=== PATIENT | male | born 1955 | race Caucasian/White ===

== ENCOUNTER → 2018-09-04 | Outpatient (CLI) | payer OTHER ==
[~2018-09-04] MED LIST: OMNIPAQUE 350 MG/ML, 100ML BOTTLE ONE
== END | disposition home or self-care (01) ==
LOC: RAD 11:47
PROVIDERS: ATTEND Nurse Practitioner Primary Care
DX: J39.2 Other diseases of pharynx (principal); M10.9 Gout, unspecified; G47.30 Sleep apnea, unspecified
CPT/HCPCS: 70491; Q9967

== ENCOUNTER → 2018-09-12 | Outpatient (CLI) | payer OTHER | END | disposition home or self-care (01) | LOC: CFH 14:38 | PROVIDERS: ATTEND Nurse Practitioner Primary Care | DX: I34.0 Nonrheumatic mitral (valve) insufficiency (principal); R22.9 Localized swelling, mass and lump, unspecified; G47.30 Sleep apnea, unspecified | CPT/HCPCS: 93306 ==

== ENCOUNTER → 2018-09-13 | Outpatient (CLI) | payer OTHER | END | disposition home or self-care (01) | LOC: PETCFH 12:50 | PROVIDERS: ATTEND Otolaryngology | DX: C79.89 Secondary malignant neoplasm of other specified sites (principal); C76.0 Malignant neoplasm of head, face and neck | CPT/HCPCS: 78815; A9552 ==

== ENCOUNTER 2018-09-14 13:03 | Outpatient (CLI) | payer OTHER | END 2018-09-14 23:59 | disposition home or self-care (01) | LOC: RAD 13:03 | PROVIDERS: ATTEND Otolaryngology | DX: C96.9 Malignant neoplasm of lymphoid, hematopoietic and related tissue, unspecified (principal) | CPT/HCPCS: 10005; 88173; 88304; 88342 ==

== ENCOUNTER 2018-10-11 10:02 | Day surgery (SDC) | payer OTHER ==
[~2018-10-11] VITALS: Ht 180.3 cm; Wt 89.0 kg
[~2018-10-11 10:02] MED LIST changes: +BUPIVACAINE/EPI 0.5% 1:200K ONE; -OMNIPAQUE 350 MG/ML, 100ML BOTTLE ONE
[2018-10-11 10:37] VITALS: BP 127/79
[2018-10-11] MEDS ORDERED: LACTATED RINGERS 1,000 ML IV SCH ×2 (10:42→12:34)
[2018-10-11] MEDS ORDERED: ACETAMINOPHEN 500 MG TABLET PO ONE (11:00)
[2018-10-11] MEDS ORDERED: GABAPENTIN 300 MG CAPSULE PO ONE (11:00)
[2018-10-11] MEDS ORDERED: APREPITANT 40 MG CAPSULE PO ONE (11:00)
[2018-10-11] MEDS ORDERED: MIDAZOLAM 1 MG/ML, 2ML ONE (11:02)
[2018-10-11] MEDS ORDERED: FENTANYL PF 250 MCG/5ML ONE (11:02)
[2018-10-11] MEDS ORDERED: DIAZEPAM 5 MG TABLET ONE (11:23)
[2018-10-11] MEDS ORDERED: DIAZEPAM 5 MG TABLET PO ONE (11:30)
[2018-10-11] MEDS ORDERED: KETAMINE 10 MG/ML, 20ML ONE (11:31)
[2018-10-11] MEDS ORDERED: SUGAMMADEX 200 MG/2 ML IVPush ONE ×2 (11:31→11:43)
[2018-10-11] MEDS ORDERED: SUCCINYLCHOLINE 20 MG/ML, 10ML ONE (11:43)
[2018-10-11] MEDS ORDERED: ROCURONIUM 10 MG/ML,10ML ONE (11:43)
[2018-10-11] MEDS ORDERED: ONDANSETRON 2MG/ML, 2ML ONE (11:43)
[2018-10-11] MEDS ORDERED: PROPOFOL 10 MG/ML, 20ML ONE (11:43)
[2018-10-11] MEDS ORDERED: CEFAZOLIN 1,000 MG ONE (11:43)
[2018-10-11] MEDS ORDERED: EPHEDRINE 50 MG/ML, 1ML ONE (11:43)
[2018-10-11] MEDS ORDERED: HEPARIN 1,000 UNITS/ML, 10ML ONE (11:45)
[2018-10-11] MEDS ORDERED: hydrALAzine 20 MG/ML, 1ML IV PRN (12:30)
[2018-10-11] MEDS ORDERED: DIAZEPAM 5 MG/ML, 2ML IVPush PRN (12:30)
[2018-10-11] MEDS ORDERED: HYDROmorphone 2 MG/ML, 1ML IVPush PRN (12:30)
[2018-10-11] MEDS ORDERED: OXYcodone 5 MG/5 ML ORAL.SOL UDC PO PRN (12:30)
[2018-10-11] MEDS ORDERED: PROMETHAZINE 25 MG/ML, 1ML IV PRN (12:30)
[2018-10-11] MEDS ORDERED: HALOPERIDOL 5 MG/ML IV PRN (12:30)
[2018-10-11] MEDS ORDERED: MEPERIDINE/PF 25MG/0.5ML IVPush PRN (12:30)
[2018-10-11] MEDS ORDERED: OXYcodone 5 MG/5 ML ORAL.SOL UDC ONE (12:53)
[2018-10-11] MEDS ORDERED: FENTANYL PF 100 MCG/2ML ONE (12:53)
[2018-10-11] MEDS: FENTANYL PF 100 MCG/2ML IV PRN ×4 (12:57→13:11)
[2018-10-11] MEDS ORDERED: ONDANSETRON 2MG/ML, 2ML IVPush PRN (13:00)
[2018-10-11] MEDS ORDERED: HYDROcodone/APAP 5/325 TABLET PO PRN (13:00)
== END 2018-10-11 17:25 | disposition home or self-care (01) ==
LOC: OUT 10:02
PROVIDERS: ATTEND Thoracic Surgery (Cardiothoracic Vascular Surgery)
DX: Z45.2 Encounter for adjustment and management of vascular access device (principal); C02.9 Malignant neoplasm of tongue, unspecified; Z98.890 Other specified postprocedural states; Z98.52 Vasectomy status; Z72.89 Other problems related to lifestyle
CPT/HCPCS: 36561; 43653; 77001; 93005; B4087; C1788; J0330; J0690; J1644; J2250; J2405; J2704; J3010; J8501

== ENCOUNTER → 2019-07-25 | Outpatient (CLI) | payer OTHER ==
[~2019-07-25] MED LIST changes: -BUPIVACAINE/EPI 0.5% 1:200K ONE; +No meds per pt.
== END | disposition home or self-care (01) ==
LOC: STAR 15:09
PROVIDERS: ATTEND Thoracic Surgery (Cardiothoracic Vascular Surgery)
DX: Z01.818 Encounter for other preprocedural examination (principal); K40.20 Bilateral inguinal hernia, without obstruction or gangrene, not specified as recurrent
CPT/HCPCS: 93005

== ENCOUNTER 2019-07-27 08:16 | Observation (INO) | payer OTHER ==
[~2019-07-27] VITALS: Ht 180.3 cm; Wt 84.5 kg
[2019-07-27] MEDS ORDERED: DIPH,PERTUSS(ACELL),TET VAC/PF 0.5 ML IM-VACC ONE ×2 (09:00→09:28)
[2019-07-27] MEDS ORDERED: LIDOCAINE-MPF 1%, 5ML INFIL ONE (09:00)
--- NOTE | 2019-07-27 09:11 | NUR ---
First contact with pt. Pt states he was standing at a meeting at work for approximately 45min when he became dizzy and passed out. Pt states witnesses to event report he was unconscious x30 seconds. Pt states he does not remember having falled. Pt A&O x4, no neuro defecits noted. Pt with hematoma to R eyebrow, lac to R lower chin as well as lower lip and abrasion to L index finger. Pt resting in bed, NADN.
[2019-07-27 09:22] LABS: BASOPHILS # (AUTO) 0.01 x10^3/uL (0-0.1); BASOPHILS % (AUTO) 0 % (0-1); EOSINOPHILS # (AUTO) 0.03 x10^3/uL (0-0.4); EOSINOPHILS % (AUTO) 0 % (1-7); LYMPHOCYTES # (AUTO) 0.53 x10^3/uL (1-3.4); LYMPHOCYTES % (AUTO) 5 % (22-44); MD NO; MEAN CORPUSCULAR HEMOGLOBIN 32.8 pg (27.5-34.5); MEAN CORPUSCULAR HGB CONC 33.8 g/dL (33.2-36.2); MEAN CORPUSCULAR VOLUME 96.9 fL (81-97); MEAN PLATELET VOLUME 6.5 fL (7.4-10.4); MONOCYTES # (AUTO) 0.58 x10^3/uL (0.2-0.8); MONOCYTES % (AUTO) 6 % (2-9); NEUTROPHILS # (AUTO) 8.76 x10^3/uL (1.8-6.8); NEUTROPHILS % (AUTO) 88 % (42-75); PLATELET COUNT 169 x10^3/uL (130-400); RED BLOOD COUNT 4.83 x10^6/uL (4.38-5.82)
[2019-07-27] MEDS ORDERED: LIDOCAINE-MPF 1%, 5ML ONE ×2 (09:27→09:53)
[2019-07-27 09:34] LABS: ALANINE AMINOTRANSFERASE 31 U/L (12-78); ALBUMIN 3.3 g/dL (3.4-5.0); ANION GAP 5 mmol/L (5-15); CALCIUM 8.4 mg/dL (8.5-10.1); CHLORIDE 107 mmol/L (98-107); CREATININE 1.11 mg/dL (0.7-1.3)
[2019-07-27 09:38] LABS: ALKALINE PHOSPHATASE 96 U/L (45-117); BILIRUBIN,TOTAL 0.4 mg/dL (0.2-1.0); TOTAL PROTEIN 6.5 g/dL (6.4-8.2); TROPONIN I < 0.015 ng/mL (0.000-0.045)
--- NOTE | 2019-07-27 09:39 | NUR ---
TASK RN: PT MED NOTED, VSS. CALL LIGHT W/I REACH. CT COMPLETED, RESULTS PENDING
--- NOTE | 2019-07-27 09:54 | NUR ---
Ann Marie EVANS at bedside for laceration repair. Pt resting in bed, EMILY. Pt's remains at bedside.
[2019-07-27] MEDS ORDERED: NEOSPORIN OINT. PKT 1 PACKET ONE (10:04)
[2019-07-27] MEDS ORDERED: SODIUM CHLORIDE 0.9% 1,000 ML IV ONE (10:13)
--- NOTE | 2019-07-27 10:21 | NUR ---
Pt resting in bed talking with , EMILY, denies needs. POC discussed with pt and his .
[2019-07-27] MEDS ORDERED: SODIUM CHLORIDE FLUSH 10ML SYR IVF PRN (10:30)
--- NOTE | 2019-07-27 10:40 | NUR ---
Report called to Anita ALEJO on card tele. Floor ready for pt transport.
--- NOTE | 2019-07-27 11:06 | NUR ---
Report to Gene ALEJO.
--- NOTE | 2019-07-27 11:22 | NUR ---
hospitalist at bedside (Tony
[2019-07-27] MEDS ORDERED: ONDANSETRON 2MG/ML, 2ML IVPush PRN (11:30)
[2019-07-27] MEDS ORDERED: ONDANSETRON ODT 4 MG PO PRN (11:30)
[2019-07-27 11:44] VITALS: BP 127/75
[2019-07-27 12:15] LABS: FREE T4 (FREE THYROXINE) 0.94 ng/dL (0.76-1.46)
[2019-07-27] MEDS: SODIUM CHLORIDE 0.9% 1,000 ML IV SCH ×2 (12:39→20:46)
[2019-07-27 13:25] VITALS: BP 116/68
[2019-07-27 13:30] VITALS: BP 124/76
[2019-07-27 13:35] VITALS: BP 122/77
[2019-07-27 14:58] LABS: TROPONIN I < 0.015 ng/mL (0.000-0.045)
[2019-07-27 21:28] VITALS: BP 108/66
[2019-07-27 21:36] LABS: TROPONIN I < 0.015 ng/mL (0.000-0.045)
[2019-07-27] MEDS: ACETAMINOPHEN 325 MG TABLET PO PRN (21:45)
[2019-07-28 03:38] VITALS: BP 114/67
[2019-07-28] MEDS: ACETAMINOPHEN 325 MG TABLET PO PRN ×2 (03:46→09:15)
[2019-07-28] MEDS: SODIUM CHLORIDE 0.9% 1,000 ML IV SCH (05:03)
[2019-07-28 05:54] LABS: BASOPHILS # (AUTO) 0.01 x10^3/uL (0-0.1); BASOPHILS % (AUTO) 0 % (0-1); EOSINOPHILS # (AUTO) 0.07 x10^3/uL (0-0.4); EOSINOPHILS % (AUTO) 1 % (1-7); LYMPHOCYTES # (AUTO) 0.85 x10^3/uL (1-3.4); LYMPHOCYTES % (AUTO) 13 % (22-44); MD NO; MEAN CORPUSCULAR HEMOGLOBIN 32.4 pg (27.5-34.5); MEAN CORPUSCULAR HGB CONC 33.6 g/dL (33.2-36.2); MEAN CORPUSCULAR VOLUME 96.4 fL (81-97); MEAN PLATELET VOLUME 7.5 fL (7.4-10.4); MONOCYTES # (AUTO) 0.79 x10^3/uL (0.2-0.8); MONOCYTES % (AUTO) 12 % (2-9); NEUTROPHILS # (AUTO) 4.97 x10^3/uL (1.8-6.8); NEUTROPHILS % (AUTO) 74 % (42-75); PLATELET COUNT 221 x10^3/uL (130-400); RED BLOOD COUNT 4.27 x10^6/uL (4.38-5.82); RED CELL DISTRIBUTION WIDTH 14.1 % (9.4-14.8)
[2019-07-28 05:56] LABS: ALBUMIN 2.9 g/dL (3.4-5.0); ANION GAP 5 mmol/L (5-15); CHLORIDE 112 mmol/L (98-107)
[2019-07-28 06:00] LABS: ALANINE AMINOTRANSFERASE 26 U/L (12-78); ALKALINE PHOSPHATASE 65 U/L (45-117); BILIRUBIN,TOTAL 0.6 mg/dL (0.2-1.0); CHOL/HDL RATIO 2.4; CHOLESTEROL, TOTAL 150 mg/dL (140-239); CREATININE 0.98 mg/dL (0.7-1.3); HDL CHOL % 42 % (26-37); HDL CHOLESTEROL (DIRECT) 63 mg/dL (40-60); LDL CHOLESTEROL,CALCULATED 69 mg/dL (54-169); LDL/HDL RATIO 1.1 (0.5-3.0); TOTAL PROTEIN 5.4 g/dL (6.4-8.2); TRIGLYCERIDES 91 mg/dL (50-200); VLDL CHOLESTEROL 18 mg/dL (0-25)
[2019-07-28 07:23] VITALS: BP 106/66
[2019-07-28 13:09] VITALS: BP 105/53
== END 2019-07-28 14:25 | disposition home or self-care (01) ==
LOC: ED 08:37 → EDIP 10:13 → INTOOBSV 10:13 → 5SO 11:36 → DCLOUNGE 07-28 14:10
PROVIDERS: ADMIT Internal Medicine; ATTEND Internal Medicine
DX: R55 Syncope and collapse (principal); S01.81XA Laceration without foreign body of other part of head, initial encounter; K40.20 Bilateral inguinal hernia, without obstruction or gangrene, not specified as recurrent; G47.33 Obstructive sleep apnea (adult) (pediatric); E86.0 Dehydration; C02.9 Malignant neoplasm of tongue, unspecified; Z92.21 Personal history of antineoplastic chemotherapy; Z92.3 Personal history of irradiation; Z85.818 Personal history of malignant neoplasm of other sites of lip, oral cavity, and pharynx; Y92.89 Other specified places as the place of occurrence of the external cause; Z23 Encounter for immunization; Z79.899 Other long term (current) drug therapy; W19.XXXA Unspecified fall, initial encounter; Y93.89 Activity, other specified; R01.1 Cardiac murmur, unspecified
CPT/HCPCS: 36415; 70450; 72125; 80053; 80061; 83036; 83735; 84100; 84439; 84443; 84484; 85025; 90471; 90715; 93005; 93306; 93880; 96360; 96361; 99285; G0378; J7030

== ENCOUNTER 2019-08-01 08:43 | Day surgery (SDC) | payer OTHER ==
[~2019-08-01] VITALS: Ht 180.3 cm; Wt 81.6 kg
[~2019-08-01 08:43] MED LIST changes: +BUPIVACAINE/PF 0.5% ONE; +EPINEPHRINE 1 MG/ML, 1ML ONE
[2019-08-01 09:21] VITALS: BP 129/80
[2019-08-01] MEDS ORDERED: LACTATED RINGERS 1,000 ML IV SCH ×2 (09:36→12:03)
[2019-08-01] MEDS ORDERED: MIDAZOLAM 1 MG/ML, 2ML ONE (09:52)
[2019-08-01] MEDS ORDERED: FENTANYL PF 250 MCG/5ML ONE (09:53)
[2019-08-01] MEDS ORDERED: ACETAMINOPHEN 500 MG TABLET ONE ×2 (10:44→10:45)
[2019-08-01] MEDS ORDERED: APREPITANT 40 MG CAPSULE ONE (10:44)
[2019-08-01] MEDS ORDERED: GABAPENTIN 300 MG CAPSULE ONE ×2 (10:45)
[2019-08-01] MEDS ORDERED: CLINDAMYCIN 150 MG/ML, 6ML ONE ×2 (10:53→11:15)
[2019-08-01] MEDS ORDERED: SUGAMMADEX 200 MG/2 ML IVPush ONE (10:54)
[2019-08-01] MEDS ORDERED: ONDANSETRON 2MG/ML, 2ML ONE (10:54)
[2019-08-01] MEDS ORDERED: GLYCOPYRROLATE 0.2MG/1ML, 5ML ONE (10:54)
[2019-08-01] MEDS ORDERED: PROPOFOL 10 MG/ML, 20ML ONE (10:54)
[2019-08-01] MEDS ORDERED: ROCURONIUM 10MG/ML,5ML ONE (10:54)
[2019-08-01] MEDS ORDERED: DEXAMETHASONE 4 MG/ML, 1ML ONE (10:54)
[2019-08-01] MEDS ORDERED: PHENYLEPHRINE 10 MG/ML ONE (10:54)
[2019-08-01] MEDS ORDERED: EPINEPHRINE 1 MG/ML, 1ML INFIL ONE (11:26)
[2019-08-01] MEDS ORDERED: morphine SULFATE 10 MG/ML, 1ML IVPush PRN (12:30)
[2019-08-01] MEDS ORDERED: HYDROcodone/APAP 5/325 TABLET PO PRN (12:30)
[2019-08-01] MEDS ORDERED: ONDANSETRON 2MG/ML, 2ML IVPush PRN (12:30)
== END 2019-08-01 14:45 | disposition home or self-care (01) ==
LOC: OUT 08:43
PROVIDERS: ATTEND Thoracic Surgery (Cardiothoracic Vascular Surgery)
DX: K40.20 Bilateral inguinal hernia, without obstruction or gangrene, not specified as recurrent (principal); D17.6 Benign lipomatous neoplasm of spermatic cord; G47.30 Sleep apnea, unspecified; Z85.810 Personal history of malignant neoplasm of tongue; Z98.52 Vasectomy status; Z98.890 Other specified postprocedural states
CPT/HCPCS: 49650; 64488; C1727; C1781; J0171; J1100; J2250; J2370; J2405; J2704; J3010; J7120

== ENCOUNTER → 2019-08-07 | Outpatient (CLI) | payer OTHER ==
[~2019-08-07] MED LIST changes: -BUPIVACAINE/PF 0.5% ONE; -EPINEPHRINE 1 MG/ML, 1ML ONE; +OMNIPAQUE 350 MG/ML, 100ML BOTTLE ONE
== END | disposition home or self-care (01) ==
LOC: RAD 15:03
PROVIDERS: ATTEND Otolaryngology
DX: R22.1 Localized swelling, mass and lump, neck (principal)
CPT/HCPCS: 70491; Q9967

== ENCOUNTER 2019-08-10 13:03 | Outpatient (CLI) | payer OTHER ==
[~2019-08-10 13:03] MED LIST changes: -OMNIPAQUE 350 MG/ML, 100ML BOTTLE ONE
== END 2019-08-10 23:59 | disposition home or self-care (01) ==
LOC: RAD 13:03
PROVIDERS: ATTEND Otolaryngology
DX: R22.1 Localized swelling, mass and lump, neck (principal); Z85.89 Personal history of malignant neoplasm of other organs and systems; Z82.49 Family history of ischemic heart disease and other diseases of the circulatory system
CPT/HCPCS: 10005; 38505; 76942; 88172; 88173

== ENCOUNTER → 2020-07-03 | Outpatient (CLI) | payer OTHER ==
[~2020-07-03] MED LIST changes: +LIDOCAINE 1%, 10ML ONE
== END | disposition home or self-care (01) ==
LOC: RAD 09:11
PROVIDERS: ATTEND Nurse Practitioner Primary Care
DX: Z53.9 Procedure and treatment not carried out, unspecified reason (principal); R22.2 Localized swelling, mass and lump, trunk

== ENCOUNTER 2020-07-04 08:32 | Outpatient (CLI) | payer OTHER ==
[~2020-07-04 08:32] MED LIST changes: -LIDOCAINE 1%, 10ML ONE
[2020-07-04] MEDS ORDERED: LIDOCAINE 1%, 10ML ONE (12:45)
[2020-07-04] MEDS ORDERED: GADOTERATE 10 MMOL/20 ML VIAL ONE (13:19)
== END 2020-07-04 23:59 | disposition home or self-care (01) ==
LOC: PETCFH 08:32 → RAD 23:59
PROVIDERS: ATTEND Nurse Practitioner Primary Care
DX: R22.2 Localized swelling, mass and lump, trunk (principal); J32.0 Chronic maxillary sinusitis; C01 Malignant neoplasm of base of tongue; G47.30 Sleep apnea, unspecified
CPT/HCPCS: 20206; 71552; 76942; 78815; 88304; A9552; A9575; J3490; 88307

== ENCOUNTER 2020-07-04 15:05 | Outpatient (CLI) | payer OTHER ==
[2020-07-04 15:39] LABS: ALBUMIN 3.6 g/dL (3.4-5.0); CALCIUM 8.7 mg/dL (8.5-10.1); CHOLESTEROL, TOTAL 185 mg/dL (140-239); MICROSCOPIC NOT IND
[2020-07-04 15:44] LABS: BASOPHILS % (AUTO) 0 % (0-1); EOSINOPHILS % (AUTO) 1 % (1-7); LYMPHOCYTES % (AUTO) 19 % (22-44); MEAN CORPUSCULAR HEMOGLOBIN 32.9 pg (27.5-34.5); MEAN CORPUSCULAR HGB CONC 33.8 g/dL (33.2-36.2); MONOCYTES % (AUTO) 8 % (2-9); NEUTROPHILS % (AUTO) 72 % (42-75); PLATELET COUNT 166 x10^3/uL (130-400); RED BLOOD COUNT 4.82 x10^6/uL (4.38-5.82); RED CELL DISTRIBUTION WIDTH 13.8 % (9.4-14.8)
[2020-07-04 15:45] LABS: MD NO
[2020-07-04 15:47] LABS: CHLORIDE 110 mmol/L (98-107)
[2020-07-04 15:51] LABS: ANION GAP 5 mmol/L (5-15)
[2020-07-04 16:05] LABS: ALANINE AMINOTRANSFERASE 30 U/L (12-78); ALKALINE PHOSPHATASE 88 U/L (45-117); BILIRUBIN,TOTAL 0.7 mg/dL (0.2-1.0); CHOL/HDL RATIO 2.5; CREATININE 1.08 mg/dL (0.7-1.3); FREE T4 (FREE THYROXINE) 0.89 ng/dL (0.76-1.46); HDL CHOL % 41 % (26-37); HDL CHOLESTEROL (DIRECT) 75 mg/dL (40-60); LDL CHOLESTEROL,CALCULATED 98 mg/dL (54-169); LDL/HDL RATIO 1.3 (0.5-3.0); TOTAL PROTEIN 6.7 g/dL (6.4-8.2); TRIGLYCERIDES 61 mg/dL (50-200); VLDL CHOLESTEROL 12 mg/dL (0-25)
[2020-07-04 16:08] LABS: FOLATE LEVEL > 20.0 ng/mL (3.1-17.5)
== END 2020-07-04 23:59 | disposition home or self-care (01) ==
LOC: LAB 15:05
PROVIDERS: ATTEND Nurse Practitioner Primary Care
DX: Z13.220 Encounter for screening for lipoid disorders (principal); D09.9 Carcinoma in situ, unspecified; R01.1 Cardiac murmur, unspecified; G47.30 Sleep apnea, unspecified; R92.2 Inconclusive mammogram; Z87.39 Personal history of other diseases of the musculoskeletal system and connective tissue
CPT/HCPCS: 36415; 80053; 80061; 81003; 82043; 82607; 82652; 82746; 83036; 84153; 84207; 84425; 84439; 84443; 84481; 84550; 85025; G0103